=== PATIENT | female | born 1965 | race Caucasian/White ===

== ENCOUNTER 2017-09-04 18:54 | Emergency (ER) | payer MEDICAID ==
[~2017-09-04] VITALS: Ht 160 cm; Wt 101.6 kg
[2017-09-04 18:59] VITALS: BP 157/69
[2017-09-04] MEDS ORDERED: LISI-420 PO (19:03)
[2017-09-04] MEDS ORDERED: METF1000 PO (19:03)
[2017-09-04] MEDS ORDERED: ORE25 PO (19:03)
--- NOTE | 2017-09-04 19:05 | NUR ---
PT TAKEN TO BED 4. REPORT GIVEN TO RADHA BENNETT.
--- NOTE | 2017-09-04 19:10 | NUR ---
PATIENT PRESENTS TO ED WITH HEADACHE X1 WEEK INTERMITTENTLY, C/O PRESSURE. PT STATES DENIES N/V/D; SKIN IS PINK/WARM/DRY; AAOX4 WITH EVEN AND STEADY GAIT; LUNGS CLEAR BL; HR EVEN AND REGULAR; PT DENIES ANY FEVER, CP, SOB, OR COUGH AT THIS TIME; PATIENT STATES PAIN OF 10/10 AT THIS TIME; VSS; PATIENT POSITIONED FOR COMFORT; HOB ELEVATED; BEDRAILS UP X1; BED DOWN. ER MD MADE AWARE OF PT STATUS.
[2017-09-04] MEDS ORDERED: KETOROLAC 30 MG/ML VIAL IM ONE (19:35)
--- NOTE | 2017-09-04 19:42 | NUR ---
LAB IN TO SEE PATIENT
--- NOTE | 2017-09-04 20:00 | NUR ---
PATIENT TO CT
[2017-09-04 20:14] LABS: ANION GAP 12.5 (8-16); CARBON DIOXIDE 30.1 mmol/L (21-32); CREATININE 0.9 mg/dL (0.6-1.3); POTASSIUM 3.6 mmol/L (3.5-5.1)
[2017-09-04] MEDS ORDERED: NACL 0.9% 1,000 ML IV ONE (22:15)
--- NOTE | 2017-09-04 22:30 | NUR ---
20G IV STARTED IN LEFT ANTECUBITAL. PATIENT TOLERATED WELL. NO SIGNS OR SYMPTOMS OF DISTRESS NOTED.
--- NOTE | 2017-09-04 22:35 | NUR ---
[facility] ER. VALENZUELA MADE AWARE.
--- NOTE | 2017-09-04 22:40 | NUR ---
DR. NIELSON TO SEE PATIENT
--- NOTE | 2017-09-04 23:15 | NUR ---
PATIENT TO CT
--- NOTE | 2017-09-05 03:15 | NUR ---
REPORT GIVEN TO SC[facility] AT [facility]. [phone].
--- NOTE | 2017-09-05 03:27 | NUR ---
Patient to be transferred to [facility]. Is being transferred due to . Receiving facility has accepting physician and available space. ER physician has signed transfer form. Patient or responsible democrat has agreed to transfer and signed form. Patient belongings inventoried and will be sent with patient. Copy of nursing notes, lab reports, EKG, Physicians Orders and X-rays to be sent with patient. Report called to at receiving facility. ambulance service has been called for transfer.
[2017-09-05 03:30] VITALS: BP 163/106
== END 2017-09-05 03:29 | disposition short-term general hospital (02) ==
LOC: MED 18:54
DX: G93.9 Disorder of brain, unspecified (principal); R51 Headache
CPT/HCPCS: 36415; 70450; 70460; 80048; 84484; 93005; 96360; 96361; 96372; 99285; J1885; Q9967